=== PATIENT | male | born 1945 | race Caucasian/White ===

== ENCOUNTER 2020-01-20 16:01 | Inpatient (IN) | payer OTHER ==
[~2020-01-20] VITALS: Ht 172.7 cm; Wt 72.9 kg
[~2020-01-20 16:01] MED LIST: ACETADOTE200 MG/1 M INH; ALBU2.5V5 INH; LIDOCAINE SS; OXYC5 PT; POTA20LUD PT; Tazicef1 G1 IV; VISCOUS SS; Xylocaine5 M1 SS
[2020-01-20 16:35] LABS: Hematocrit 40.7 % (37.0-53.0); Hemoglobin 13.6 g/dL (13.5-17.5); Mean Corpuscular HGB 29.6 pg (26.0-34.0); Mean Corpuscular HGB Conc 33.4 g/dL (31.5-36.5); Mean Corpuscular Volume 89 fL (80-100); Mean Platelet Volume 10.9 fL (9.1-12.4); NRBC ABSOLUTE 0.15 K/mm3 (0.00-0.02); NRBC Auto 2.7 /100 WBC (0.0-0.2); RDW Coefficient Variation 18.5 % (11.7-14.2); RDW Standard Deviation 59.3 fL (35.1-46.3); Red Blood Cell Count 4.59 M/mm3 (4.30-5.90); White Blood Cell Count 5.65 K/mm3 (4.00-11.30)
[2020-01-20] MEDS ORDERED: CREON DR 12,001 EACH PO (16:44)
[2020-01-20 16:46] LABS: Alanine Aminotransfer (ALT/SGP 290 U/L (12-78); Albumin, Blood 1.8 g/dL (3.4-5.0); Albumin/Globulin Ratio 0.5 (0.8-1.8); Alk Phos 469 U/L (50-136); Anion Gap 4 mmol/L (6-16); Aspartate Aminotrans (AST/SGOT 251 U/L (12-37); Bilirubin, Total 5.9 mg/dL (0.1-1.0); Blood Urea Nitrogen 41 mg/dL (8-24); Bun/Creatinine Ratio 49.1 (12.0-20.0); CO2, Blood 40 mmol/L (21-32); Calcium, Blood 8.3 mg/dL (8.5-10.1); Chloride, Blood 103 mmol/L (98-108); Creatinine, Blood 0.84 mg/dL (0.60-1.20); Globulin, Blood 3.5 g/dL (2.2-4.0); Glomerular Filtration Rate >60 (60-); Glucose, Blood 164 mg/dL (70-99); Potassium, Blood 2.7 mmol/L (3.5-5.5); Sodium, Blood 147 mmol/L (136-145); Total Protein, Blood 5.3 g/dL (6.4-8.2)
[2020-01-20] MEDS ORDERED: SILODOSIN4 MG PO (16:47)
[2020-01-20] MEDS ORDERED: Prinivil10 MG PO (16:47)
[2020-01-20 16:50] LABS: Platelet Count 28 K/mm3 (150-400)
[2020-01-20 17:03] LABS: International Normalized Ratio 1.04; Prothrombin Time Results 11.1 Sec (9.7-11.5)
[2020-01-20] MEDS ORDERED: Aspir 8181 MG PO (17:08)
[2020-01-20] MEDS ORDERED: ZYRTEC10 M2 PO (17:09)
[2020-01-20] MEDS ORDERED: CALCIUM 250-VI1 EACH PO (17:12)
[2020-01-20] MEDS ORDERED: FAMO20 PO (17:14)
[2020-01-20] MEDS ORDERED: CHLO25B PO (17:14)
[2020-01-20] MEDS ORDERED: ZOCOR20 MG PO (17:15)
[2020-01-20] MEDS ORDERED: FISH OIL 1,2001 EAC1 PO (17:15)
[2020-01-20] MEDS ORDERED: LOSA50 PO (17:15)
[2020-01-20] MEDS ORDERED: NASAL SPRAY88 ML (17:16)
[2020-01-20] MEDS ORDERED: OMEP20ER PO (17:17)
[2020-01-20] MEDS ORDERED: Hair, Skin & N1 EACH PO (17:18)
[2020-01-20] MEDS ORDERED: CIDAFLEX TABLE1 EAC1 PO (17:19)
[2020-01-20 17:51] LABS: EOSINOPHILS PERCENT MAN 0 % (0-6); LYMPHOCYTES % ATYPICAL MANUAL 1 % (0-0); METAMYELOCYTE ABSOLUTE MAN 0.33 K/mm3 (0.00-0.00); SEG NEUTROPHILS PERCENT MAN 70 % (41-73); TOTAL CELLS COUNTED 100
--- NOTE | 2020-01-21 00:40 | NUR ---
2ND IV PLACED BY JESSICA LOFTON VIA U/S FOR NEWLY ORDERED IV INFUSIONS FOLLOWING LOW POTASSIUM AND MAGNESIUM LEVELS.
--- NOTE | 2020-01-21 01:00 | NUR ---
POTASSIUM LEVEL ONLY CAME UP TO 2.8 FROM 2.7 AFTER [facility] THEN 40 [facility] IV KRIDER IN ER. ALMA (TITLE CURATIVE SPECIALIST) ALERTED AND SHE RX'D AN ADDITIONAL X1 40 MEQ PO KCL AND 40 MEQ IV KRIDER. SHE ALSO RX'D X1 30 MMOL IV KPHOSH INFUSION FOR MG 2.0. 2ND IV PLACED AND INFUSIONS COMMENCED. AM LABS ORDERED FOR FOLLOW UP.
--- NOTE | 2020-01-21 03:03 | NUR ---
NEWLY PLACED SHAN IV INFILTRATED DURING KPHOS INFUSION SO WAS DC'D. JESSICA LOFTON REPLACED IV W/22G IV TO R.FA VIA U/S AND KPHOS RESTARTED.
[2020-01-21 05:13] LABS: Hematocrit 39.2 % (37.0-53.0); Hemoglobin 13.1 g/dL (13.5-17.5); Mean Corpuscular HGB 29.6 pg (26.0-34.0); Mean Corpuscular HGB Conc 33.4 g/dL (31.5-36.5); Mean Corpuscular Volume 89 fL (80-100); Mean Platelet Volume 12.6 fL (9.1-12.4); NRBC ABSOLUTE 0.13 K/mm3 (0.00-0.02); NRBC Auto 2.2 /100 WBC (0.0-0.2); RDW Coefficient Variation 18.7 % (11.7-14.2); Red Blood Cell Count 4.42 M/mm3 (4.30-5.90)
[2020-01-21 05:27] LABS: Platelet Count 28 K/mm3 (150-400)
[2020-01-21 05:39] LABS: Alanine Aminotransfer (ALT/SGP 281 U/L (12-78); Albumin, Blood 1.7 g/dL (3.4-5.0); Albumin/Globulin Ratio 0.5 (0.8-1.8); Alk Phos 466 U/L (50-136); Anion Gap 5 mmol/L (6-16); Aspartate Aminotrans (AST/SGOT 261 U/L (12-37); Bilirubin, Total 6.4 mg/dL (0.1-1.0); Blood Urea Nitrogen 37 mg/dL (8-24); Bun/Creatinine Ratio 50.3 (12.0-20.0); CO2, Blood 37 mmol/L (21-32); Calcium, Blood 8.3 mg/dL (8.5-10.1); Chloride, Blood 102 mmol/L (98-108); Creatinine, Blood 0.74 mg/dL (0.60-1.20); Globulin, Blood 3.4 g/dL (2.2-4.0); Glomerular Filtration Rate >60 (60-); Glucose, Blood 166 mg/dL (70-99); Potassium, Blood 3.3 mmol/L (3.5-5.5); Sodium, Blood 144 mmol/L (136-145); Total Protein, Blood 5.1 g/dL (6.4-8.2)
[2020-01-21 05:41] LABS: BAND PERCENT MAN 16 % (0-8); BASOPHILS PERCENT MAN 0 % (0-2); EOSINOPHILS PERCENT MAN 0 % (0-6); LYMPHOCYTES ABSOLUTE MAN 0.82 K/mm3 (0.84-5.20); LYMPHOCYTES PERCENT MAN 14 % (21-46); METAMYELOCYTE ABSOLUTE MAN 0.11 K/mm3 (0.00-0.00); METAMYELOCYTE PERCENT MAN 2 % (0-0); MONOCYTES ABSOLUTE MAN 0.17 K/mm3 (0.16-1.47); MONOCYTES PERCENT MAN 3 % (4-13); MYELOCYTE ABSOLUTE MAN 0.23 K/mm3 (0.00-0.00); MYELOCYTE PERCENT MAN 4 % (0-0); NEUTROPHILS ABSOLUTE MAN 4.54 K/mm3 (1.96-9.15); SEG NEUTROPHILS PERCENT MAN 61 % (41-73); TOTAL CELLS COUNTED 100
--- NOTE | 2020-01-21 05:50 | NUR ---
SUMMARY: REPORT RECIEVED FROM ANNALISE (SIDE SHOW ENTERTAINER) AT 2019 AND PT T/F VIA GURNEY TO ROOM 350 W/ AT BEDSIDE. PT IS ORIENTED, A FINE HISTORIAN AND CAN SPECIFY NEEDS BUT ASSISTED W/ADMISSION D/T PT TALKING W/VOICEBOX FOLLOWING LARYNGECTOMY R/T THROAT CANCER. STOMA NOTED TO MEDIAL NECK AND PT COMMENCED HUMIDIFIED COOL AIR, NO O2 NEEDED. HE OCCASIONALLY HAD DRY FOURTH MATE COUGH BUT RESPS E/U AND SPO2 WNL. PT TOLERATED PILLS W/WATER. HIS ABDO IS DISTENDED/FIRM AND TENDER BUT PT DENIED NAUSEA OR NEEDING PAIN MEDS. ABDO U/S SHOWED NUMEROUS NEW MASSES, INTENDS TO DISCUSS W/ONCOLOGISTS AT [place] AND PT/ HOPE FOR TX SOON POSSIBLE. PT CONT'S TO HAVE POOR APPETITE BUT SNACKS/FLUIDS ENCOURAGED. RECHECK OF POTASSIUM WAS 2.8 W/ADDITIONAL 40MEQ PO AND KRIDERS RECIEVED. PHOS WAS 2.0 W/KPHOS RX'D AND REMAINS INFUSING. AM LABS PENDING AND PLATELETS ARE STILL CRITICAL, 28. SCD'S APPLIED, BLE 1-2 EDEMA NOTED. HE'S WEAK AND DECONDITIONED R/T ILLNESS BUT STANDS AT EOB TO USE URINAL FOR SMALL AMT'S OF VOID. PT NSR ON TELEMETRY AT 70'S BPM. VSS/AFEBRILE, NO ACUTE CHANGES. WCTM AND REPORT TO DAY RN.
--- NOTE | 2020-01-21 09:36 | NUR ---
CALLED DR HUDSON- PT NOTED TO HAVE DARK YELLOW PATCHES IN HIS MOUTH AND ON HIS TOUNG. SPOKE TO THE SPOUSE AND SHE STATED THEY "DIDN'T EVEN KNOW HE HAD THRUSH U[facility]IL [facility]." RECIEVED ORDER FOR NYSTATIN SWISH AND SWALLOW QID.
[2020-01-21 13:44] LABS: BAND PERCENT MAN 15 % (0-8); LYMPHOCYTES ABSOLUTE MAN 0.62 K/mm3 (0.84-5.20); LYMPHOCYTES PERCENT MAN 10 % (21-46); MONOCYTES PERCENT MAN 3 % (4-13)
[2020-01-21 13:45] LABS: BASOPHILS PERCENT MAN 0 % (0-2); MONOCYTES ABSOLUTE MAN 0.16 K/mm3 (0.16-1.47)
[2020-01-21 13:46] LABS: MYELOCYTE ABSOLUTE MAN 0.05 K/mm3 (0.00-0.00); MYELOCYTE PERCENT MAN 1 % (0-0)
--- NOTE | 2020-01-21 18:07 | NUR ---
SHIFT SUMMARY- PT ALERT AND ORIENTED, CAN INDEPENDENTLY USE THE URINAL. PT SPOUSE HAS BEEN AT THE BEDSIDE FOR MOST OF THE SHIFT. PT CAN SPEAK IN A WISPER OR LOUDLY WITH THE MECHANICAL VOICE BOX HE HAS. PT STATED HE WANTS TO REMAIN A DNR, BRACELET WAS PLACED AND ORDER CONFIRMED WITH RN VIVIAN. PT SPOUSE HAS BEEN SPEAKING WITH THE STAFF AT [facility]. AT ONE POINT THE PLAN WAS TO TRANSFER THE PT THIS EVENING. THE LAST CALL SHE RECIEVED WAS AFTER THE DR'S HAD SPOKE AND SHE STATED SHE WAS INFORMED THAT THEY WILL REVISIT THE IDEA OF TRANSFER TOMORROW ONCE THE RESULTS OF THE CT SCAN ARE IN. THIS IS ALL REPORTED BY THE PT AFTER SPEAKING TO [facility] RN BY TELEPHONE THIS EVENING. PT REMAINS OPTOMISTIC. PT HAS DENIED THE NEED FOR PAIN MEDICATION AT THIS TIME. PT IS MORE LETHARGIC THIS EVENING COMPARED TO THIS MORNING. PT CURRENTLY SITTING UP IN BED CALL LIGHT IN REACH, EATING HIS DINNER. SWISH AND SWALLOW NEXT TO THE TRAY FOR ONCE THE PT COMPLETES HIS MEAL. WILL PASS ALL ON IN REPORT TO NIGHT RN.
--- NOTE | 2020-01-22 04:01 | NUR ---
MORNING NEWS PRODUCER SUMMARY PT WAS CONFUSED EVEN URINATING ON THE FLOOR TWICE SO A CONDOM CATHETER WAS PLACED BUT PT PULLED IT OFF. PT HAD INCREASED SECRETIONS W BLOOD IN STOMA SO R/T WAS CONTACTED SEVERAL TIMES TO PERFORM SUCTIONING. PT APPEARS MORE ALERT THIS AM AND IS TOLERATING SUCTIONING WELL. PT HAS SLEPT OFF AND ON ALL NIGHT W NO C/O PAIN OR NAUSEA. WCTM.
[2020-01-22 05:15] LABS: Hematocrit 39.5 % (37.0-53.0); Hemoglobin 13.3 g/dL (13.5-17.5); Red Blood Cell Count 4.46 M/mm3 (4.30-5.90); White Blood Cell Count 6.35 K/mm3 (4.00-11.30)
[2020-01-22 05:16] LABS: Alanine Aminotransfer (ALT/SGP 312 U/L (12-78); Albumin, Blood 1.8 g/dL (3.4-5.0); Albumin/Globulin Ratio 0.5 (0.8-1.8); Alk Phos 562 U/L (50-136); Anion Gap 7 mmol/L (6-16); Aspartate Aminotrans (AST/SGOT 296 U/L (12-37); Blood Urea Nitrogen 38 mg/dL (8-24); Bun/Creatinine Ratio 46.7 (12.0-20.0); CO2, Blood 34 mmol/L (21-32); Calcium, Blood 8.7 mg/dL (8.5-10.1); Chloride, Blood 103 mmol/L (98-108); Creatinine, Blood 0.81 mg/dL (0.60-1.20); Globulin, Blood 3.3 g/dL (2.2-4.0); Glomerular Filtration Rate >60 (60-); Glucose, Blood 142 mg/dL (70-99); Mean Corpuscular HGB 29.8 pg (26.0-34.0); Mean Corpuscular HGB Conc 33.7 g/dL (31.5-36.5); Mean Corpuscular Volume 89 fL (80-100); Phosphorus, Blood 2.6 mg/dL (2.5-4.9); Sodium, Blood 144 mmol/L (136-145); Total Protein, Blood 5.1 g/dL (6.4-8.2)
[2020-01-22 05:17] LABS: Platelet Count 30 K/mm3 (150-400); RDW Standard Deviation 59.7 fL (35.1-46.3)
[2020-01-22 05:19] LABS: BAND PERCENT MAN 14 % (0-8); BASOPHILS PERCENT MAN 0 % (0-2); EOSINOPHILS PERCENT MAN 0 % (0-6); LYMPHOCYTES ABSOLUTE MAN 0.95 K/mm3 (0.84-5.20); LYMPHOCYTES PERCENT MAN 15 % (21-46); MONOCYTES ABSOLUTE MAN 0.25 K/mm3 (0.16-1.47); MONOCYTES PERCENT MAN 4 % (4-13); MYELOCYTE ABSOLUTE MAN 0.06 K/mm3 (0.00-0.00); MYELOCYTE PERCENT MAN 1 % (0-0); NEUTROPHILS ABSOLUTE MAN 5.08 K/mm3 (1.96-9.15); SEG NEUTROPHILS PERCENT MAN 66 % (41-73); TOTAL CELLS COUNTED 100
--- NOTE | 2020-01-22 05:42 | NUR ---
INCREASED BLEEDING PT HAD INCREASED AM BLEEDING FROM LARYNGEAL STOMA R/T WAS PROVIDING SUCTIONING PRN BUT REPORTED THEIR CONCERN SO PROVIDER WAS CONTACTED TO MAKE AWARE OF LOW PLATELET COUNT AND ACTIVE BLEEDING SO ONE UNIT OF PLATELETS WAS ORDERED AND INR LABS TO BE DRAWN. WCPAMELA.
[2020-01-22 05:56] LABS: International Normalized Ratio 1.09; Prothrombin Time Results 11.6 Sec (9.7-11.5)
--- NOTE | 2020-01-22 07:44 | NUR ---
CALLED RT ANDIE- PT LUNG SOUNDS MORE MOIST THAN YESTERDAY. RT ANDIE CAME AN SUCTIONED THE UPPER STOMA AND GOT A LARGE AMOUNT OF MITESH RED BLOOD. PT TOLLERATED WELL COUGH DOES NOT SEEM MOIST. RT SET UP SUCTION FOR THE PT TO USE IF HE NEEDS AND INSTRUCTED HIM NOT TO INSERT IT INTO HIS STOMA. PT ACKNOWLEDGED UNDERSTANING OF THIS.
--- NOTE | 2020-01-22 08:04 | NUR ---
CALLED DR HUDSON- SPOKE ABOUT THE PT WET LUNG SOUNDS AND THE SLIGHTLY LOWER BP THIS MORNING. OK TO HOLD COZAR AND RECIEVED ORDER FOR 2 VIEW CHEST XRAY.
--- NOTE | 2020-01-22 12:19 | NUR ---
PT GAVE SOIL AND PLANT SCIENTIST PERMISSION FOR CARE ON 02/01/20 AT 700.
--- NOTE | 2020-01-22 12:53 | NUR ---
Spiritual care visit conducted. Patient is sitting up in bed and alert. Patient's spouse, Hilda, is present. They tell me about the patient's cancer, the levels that need to regulate in order to consider a transfer to the [facility], and how they are handling things emotionally. They explain about their belief in a higher power, patient's "I will fight this to the end" spirit and their love and commitment to each other. Hilda seems much more open to taking her home on hospice, although the thought of it brings her to tears. I normalize their feelings and thoughts, reinforce helpful attitudes and practices and provide emotional supoort and a calming presence. I will continue to remain available to help them work through the best medical decisions for them as they comntemplate the transfer for on-going treatment.
--- NOTE | 2020-01-22 15:49 | NUR ---
PT SPOUSE SEEMS MORE ACCEPTING OF SPEAKING WITH THE PALLIATIVE CARE TEAM SHE STATED IF THE PT IS NOT GOING TO GET ANY BETTER "HOSPICE IS THE WAY TO GO." AT THIS TIME THE SPOUSE WISHES TO SUPPORT THE PT IN HIS DECISIONS WICH CURRENTLY ARE TO "FIGHT IT TILL THE END." CALLED PALLIATIVE CARE RN HARLEY WHO WILL COME TO SEE THEM SOON. PT SEEMS TO BE BECOMING MORE LETHARGIC THIS EVENING, DENIES THE NEED FOR PAIN MEDICINE, BUT IS FAR MORE SLEEPY THIS EVENING.
--- NOTE | 2020-01-22 16:03 | NUR ---
SPOKE TO JUAN PABLO WHITLEY- RALPH FIRST DOSE OF FLAGYL WAS GIVEN AT 1100 NEXT DOSE DUE AT 1600. OK TO GIVE THE DOSE AT 1800 THEN ON TO THE SCHEDULED TIMES FROM THEN ON.
--- NOTE | 2020-01-22 16:56 | NUR ---
Spoke with Bedside RN Marquita and discussed case prior to Pt visit. Pt resting in bed with his eyes closed for much of the visit. Engaged in therapeutic listening as spouse Hilda expresses concern regarding Pt's condition. Hilda reports Pt would like to fight and receive cancer treatment if his body will allow. Hilda reports understanding of the potential of Pt needing to consider hospice. Hilda states if Pt doesn't stabilize then she will take him home on hospice. Hilda reports understanding of hospice philosophy due to having hospice experience with other family members. Hilda tearful at times and this RN offered emotional support. Hilda also expresses concerns regarding Pt's NPO status and states due to Pt's procedure it is not possible for Pt to aspirate. She would like careteam to consider placing Pt back onto a diet. Dr Stearns and RT Jennifer in to examine Pt. This RN ended visit with Hilda agreeable to continued visits from Palliative Care. Relayed request regarding diet to Dr Howell. Palliative Care will remain available.
[2020-01-22 18:14] LABS: Base Excess Venous 11.4 mmol/L; Bicarbonate Venous 34.4 mmol/L (24.0-30.0); PCO2 Venous 37.3 mmHg (38-42)
[2020-01-22 18:18] LABS: pH Blood Venous 7.56 (7.34-7.37)
--- NOTE | 2020-01-22 18:36 | NUR ---
SPOKE TO PULMONOLOGY ABOUT CRITICAL HIGH PH ON VBG. SHE IS AWARE NO NEW ORDERS AT THIS TIME. 18G IV PLACED IN THE LEFT AC WITH THE USE OF ULTRASOUND. CALLED CT TO TELL THEM THE PT IS READY FOR THE STAT CT CHEST. REQUESTED THAT NIGHT RN CALL HER WITH THE RESULT OF THE PE STUDY.
[2020-01-22 18:49] LABS: Adenovirus Not Detected (NOT DETECT); Bordetella pertussis Not Detected (NOT DETECT); Chlamydophila pneumoniae Not Detected (NOT DETECT); Coronavirus 229E Not Detected (NOT DETECT); Coronavirus HKU1 Not Detected (NOT DETECT); Coronavirus NL63 Not Detected (NOT DETECT); Coronavirus OC43 Not Detected (NOT DETECT); Human Metapneumovirus Not Detected (NOT DETECT); Human Rhinovirus/Enterovirus Not Detected (NOT DETECT); Influenza A/2009-H1 Not Detected (NOT DETECT); Influenza A/H1 Not Detected (NOT DETECT); Influenza A/H3 Not Detected (NOT DETECT); Influenza B Not Detected (NOT DETECT); Mycoplasma pneumoniae Not Detected (NOT DETECT); Parainfluenza Virus 1 Not Detected (NOT DETECT); Parainfluenza Virus 2 Not Detected (NOT DETECT); Parainfluenza Virus 3 Not Detected (NOT DETECT); Parainfluenza Virus 4 Not Detected (NOT DETECT); Respiratory Syncytial Virus Not Detected (NOT DETECT); SARS-Cov-2 (COVID-19), BioFire Not Detected (NOT DETECT)
--- NOTE | 2020-01-22 19:27 | NUR ---
SHIFT SUMMARY- PT HAS CONTINUED TO BECOME MORE LETHARGIC T/O THE DAY. BLOODY SPUTUM SUCTIONED OUT OF THE TRACH STOMA BY RT AND SENT TO LAB FOR BACTERIAL CULTURE. PT HAD CHEST XRAY THIS MORNING AND WAS MADE STRICT NPO BY DR. JESSICA REINOSO DC'D. PT WAS SEEN BY PULMONOLOGY THIS EVENING, STAT CHEST CT TO R/O PE JUST COMPLETED, DELAYED BY THE LACK OF APPROPRIATE IV ACCESS. MULTIPLE ATTEMPTS TO ACHIEVE 18G IV ACCESS IN THE AC OR HIGHER. ONE PLACED BY WET PAN OPERATOR CARMELO. PT ALERT AND ORIENTED BUT VERY SLEEPY THIS EVENING. SPOUSE IS AT THE BEDSIDE AT THIS TIME. PLAN IS FOR SPOUSE TO BRING A FAMILY MEMBER AND A FRIEND WITH THE PT WRITTEN WILL. THEY HAVE REQUESTED [facility] FOR THE WILL TOMORROW.
--- NOTE | 2020-01-22 20:00 | NUR ---
[address]Y WITH [address] SCAN RESULTS. PROVIDER OK'D TO INFORM PT OF CANCER SPREAD TO PT LUNGS. NO OTHER ORDERS OBTAINED.
--- NOTE | 2020-01-23 04:22 | NUR ---
HEEL COVER SPLITTER SUMMARY PT HAD A MUCH BETTER NIGHT COMPARED TO THE PREVIOUS NIGHT HE REQUIRED NO SUCTIONING AND SHOWED NO SIGNS OF ANY AIRWAY OBSTRUCTION. PT WAS UP SEVERAL TIMES TO VOID BUT DID NOT USE HIS CALL LIGHT, BED ALARM IS ON. CLINIMIX IS RUNNING AT 100/ML/HR. PT WENT FOR CT SCAN AT THE START OF THE SHIFT AND THE PROVIDER WAS CONTACTED WITH THE RESULTS. PT HAS SLEPT FOR MOST OF THE SHIFT AND IS RESTING COMFORTABLY W CALL LIGHT WITHIN REACH. [facility]
[2020-01-23 05:16] LABS: Hematocrit 37.4 % (37.0-53.0); Hemoglobin 12.5 g/dL (13.5-17.5); Mean Corpuscular HGB 29.6 pg (26.0-34.0); Mean Corpuscular HGB Conc 33.4 g/dL (31.5-36.5); Mean Corpuscular Volume 88 fL (80-100); Mean Platelet Volume 10.7 fL (9.1-12.4); NRBC ABSOLUTE 0.15 K/mm3 (0.00-0.02); NRBC Auto 2.1 /100 WBC (0.0-0.2); Platelet Count 63 K/mm3 (150-400); RDW Standard Deviation 60.1 fL (35.1-46.3); Red Blood Cell Count 4.23 M/mm3 (4.30-5.90)
[2020-01-23 05:30] LABS: Albumin, Blood 1.7 g/dL (3.4-5.0); Anion Gap 6 mmol/L (6-16); Blood Urea Nitrogen 37 mg/dL (8-24); Bun/Creatinine Ratio 55.1 (12.0-20.0); CO2, Blood 33 mmol/L (21-32); Calcium, Blood 8.4 mg/dL (8.5-10.1); Chloride, Blood 105 mmol/L (98-108); Creatinine, Blood 0.67 mg/dL (0.60-1.20); Glomerular Filtration Rate >60 (60-); Glucose, Blood 191 mg/dL (70-99); Phosphorus, Blood 2.7 mg/dL (2.5-4.9); Potassium, Blood 3.3 mmol/L (3.5-5.5); Sodium, Blood 144 mmol/L (136-145)
[2020-01-23 05:40] LABS: BAND PERCENT MAN 20 % (0-8); BASOPHILS PERCENT MAN 0 % (0-2); EOSINOPHILS PERCENT MAN 0 % (0-6); LYMPHOCYTES ABSOLUTE MAN 0.64 K/mm3 (0.84-5.20); LYMPHOCYTES PERCENT MAN 9 % (21-46); MONOCYTES ABSOLUTE MAN 0.07 K/mm3 (0.16-1.47); MONOCYTES PERCENT MAN 1 % (4-13); MYELOCYTE ABSOLUTE MAN 0.21 K/mm3 (0.00-0.00); MYELOCYTE PERCENT MAN 3 % (0-0); NEUTROPHILS ABSOLUTE MAN 6.26 K/mm3 (1.96-9.15); SEG NEUTROPHILS PERCENT MAN 67 % (41-73); TOTAL CELLS COUNTED 100
--- NOTE | 2020-01-23 09:32 | NUR ---
Spoke with ST Bailey prior to Pt visit and discussed case. Will let Lynn know Pt's goals of care after visit. Pt resting in bed upon arrival. Family at bedside. Engaged in therapeutic conversation regarding CT results and goals of care. Listened as Pt expresses his thoughts and states "He does not want to be in hospitals anymore" and "If I'm going to , I want to do it at home". Discussed hospice further as an option. Educated on hospice philosophy. Pt and family report plan to discuss options further before making a decision. Ansered questions and continued therapeutic listening. Pt and family expresses appreciation of visit. Spoke with ST Bailey and updated that Pt has not made a decision yet. Palliative Care will remain available.
--- NOTE | 2020-01-23 17:18 | NUR ---
PT A/O X4; PLEASANT AND COOPERATIVE WITH CARE. USES THE URINAL AT THE SIDE OF THE BED. NO SIGNS OF AIRWAY DISTRESS THIS SHIFT. PT WAS TO [place]BRA TRANSFER TO THE IN IN FIRTH THIS SHIFT, BUT HE AND HIS DECIDED TO BE TREATED HERE FOR NOW AND DID NOT GO. TELE RUNNING SINUS. MEDICATE PER EMR FOR PAIN. VSS; WCTM.
--- NOTE | 2020-01-23 22:50 | NUR ---
CALL PLACED TO HOSPITALIST: PER LAB, 1 OF 2 BLOOD CULTURE VIALS POSITIVE SO FAR FOR GRAM + COCCI IN CLUSTERS. PER PHARMACIST, PT CURRENT DOSE OF ROCEPHIN DOES COVER BACTERIA STRAIN. RECOMMENDED MD BE NOTIFIED. SPOKE W/ ALMA BUSTOS. PT IS CLINICALLY SHOWING IMPROVEMENT SO ALMA STATES IT IS OK TO CONT CURRENT ABT REGIMEN AND MAKE SURE THE DOCTORS DURING THE DAY TIME ARE AWARE.
--- NOTE | 2020-01-24 05:39 | NUR ---
SHIFT SUMMARY: VSS. AFEB. AAO TO SELF, SURROUNDINGS, SITUATION, YEAR, BUT NOT DAY OR MONTH. ABLE TO COMMUNICATE NEEDS. ENCOURAGED PT TO CALL FOR ASSIST W/STANDING AT BEDSIDE TO USE URINAL. ABLE TO STAND, BUT OCCASIONALLY APPEAR TO BEGIN TO LOSE BALANCE, NEEDS 1 ASSIST FOR CONTACT GUARD SUPPORT. MINOR EXERTIONAL DYSPNEA. 02 AT 94-96%. 26% FIO2 WARMED HUMIDIFIED AIR VIA TRACH. PT COUGHED UP 1 QUARTER SIZED BLOOD CLOT TONIGHT. COARSE LUNG SOUNDS IN R LOBES. DRY, CONGESTED SOUNDING COUGH. MED X 1 W/FENTANYL FOR ABD PAIN EFFECTIVELY. SLEPT INTERMITTENTLY. WILL CONT TO MONITOR.
[2020-01-24 06:21] LABS: Hematocrit 40.3 % (37.0-53.0); Hemoglobin 13.4 g/dL (13.5-17.5); Mean Corpuscular HGB Conc 33.3 g/dL (31.5-36.5); Mean Corpuscular Volume 87 fL (80-100); NRBC Auto 4.9 /100 WBC (0.0-0.2); RDW Coefficient Variation 19.1 % (11.7-14.2); RDW Standard Deviation 59.4 fL (35.1-46.3); Red Blood Cell Count 4.62 M/mm3 (4.30-5.90); White Blood Cell Count 8.18 K/mm3 (4.00-11.30)
[2020-01-24 06:36] LABS: Albumin, Blood 1.7 g/dL (3.4-5.0); Anion Gap 11 mmol/L (6-16); Blood Urea Nitrogen 44 mg/dL (8-24); Bun/Creatinine Ratio 54.9 (12.0-20.0); CO2, Blood 27 mmol/L (21-32); Calcium, Blood 8.7 mg/dL (8.5-10.1); Chloride, Blood 104 mmol/L (98-108); Glomerular Filtration Rate >60 (60-); Glucose, Blood 167 mg/dL (70-99); Phosphorus, Blood 2.9 mg/dL (2.5-4.9); Potassium, Blood 4.1 mmol/L (3.5-5.5); Sodium, Blood 142 mmol/L (136-145)
[2020-01-24 06:55] LABS: Platelet Count 29 K/mm3 (150-400)
[2020-01-24 07:03] LABS: BAND PERCENT MAN 18 % (0-8); BASOPHILS PERCENT MAN 0 % (0-2); EOSINOPHILS PERCENT MAN 0 % (0-6); LYMPHOCYTES ABSOLUTE MAN 0.98 K/mm3 (0.84-5.20); LYMPHOCYTES PERCENT MAN 12 % (21-46); METAMYELOCYTE ABSOLUTE MAN 0.08 K/mm3 (0.00-0.00); METAMYELOCYTE PERCENT MAN 1 % (0-0); MONOCYTES ABSOLUTE MAN 0.08 K/mm3 (0.16-1.47); MONOCYTES PERCENT MAN 1 % (4-13); MYELOCYTE ABSOLUTE MAN 0.16 K/mm3 (0.00-0.00); MYELOCYTE PERCENT MAN 2 % (0-0); NEUTROPHILS ABSOLUTE MAN 6.87 K/mm3 (1.96-9.15); SEG NEUTROPHILS PERCENT MAN 66 % (41-73); TOTAL CELLS COUNTED 100
[2020-01-24] MEDS ORDERED: Ativan1 MG PO (14:56)
[2020-01-24] MEDS ORDERED: OXYCODONE SL (14:58)
--- NOTE | 2020-01-24 15:46 | NUR ---
Met with pt and thes AM. Pt is adamant he want to go home and feels she has the support to accoplish the goal. also states she feels is progressing quicker.Advised we try to facilitae home today. Suggested they accept comfort care so he can have visitors in case he declines more and have comprehensive palliative medications for his ventilatory stress. Reached out to hospice teams [facility] able to intake patients. poslt completed and sent with patient. Confirmed able to manage his oxygen needs and correct trach mask at home. orderes sent to hospice team. Advised pt and his is symtoms are to exptrodinary they will need to break hospice and return to hospital. Reviewd with what we would do to help him. pt hesitant to take a felder catheter but voiding frequently. Explained how it would enhance comfort and can be discontinued when voiding less. Pt decided to have felder. Suggested premedicat pt for transfer to reduce air hunger and stress. Will follow up with .
--- NOTE | 2020-01-24 18:34 | NUR ---
Discharge Summary A/Ox3, pleasant and cooperative with care. Patient transitioned from full care to comfort care this shift. Medicated for pain per EMAR with good relief. Solis catheter placed per patient's request for comfort as he has been increasingly weak. Prior to cath placement, patient was a 1-2 moderate assist to stand and use urinal. Patient has been discharge to home with hospice. Transport picked up @ 1835 via [facility]. 2 hard scripts handed to to fill as pharmacy. Reviewed discharge paperwork and medications with and patient, no questions at this time. Copy provided. Personal belongings sent home. IV's x 3 removed, all WNL. Solis was patent and draining at discharge with minimal bleeding from urethra. 10L O2 provided by EMS.
== END 2020-01-24 18:35 | disposition hospice, home (50) | DRG 640 ==
LOC: ER 16:01 → MEDS 16:02
PROVIDERS: Family Medicine; Internal Medicine; Internal Medicine Pulmonary Disease; Nurse Practitioner Acute Care; Physician Assistant; ADMIT Internal Medicine
DX: E87.6 Hypokalemia (principal); J96.01 Acute respiratory failure with hypoxia; R65.20 Severe sepsis without septic shock; J69.0 Pneumonitis due to inhalation of food and vomit; A41.9 Sepsis, unspecified organism; C78.7 Secondary malignant neoplasm of liver and intrahepatic bile duct; B37.0 Candidal stomatitis; E72.20 Disorder of urea cycle metabolism, unspecified; R18.8 Other ascites; J95.01 Hemorrhage from tracheostomy stoma; C78.1 Secondary malignant neoplasm of mediastinum; D69.6 Thrombocytopenia, unspecified; E78.5 Hyperlipidemia, unspecified; I10 Essential (primary) hypertension; Z87.891 Personal history of nicotine dependence; R16.0 Hepatomegaly, not elsewhere classified; Z79.82 Long term (current) use of aspirin; Z90.02 Acquired absence of larynx; Z66 Do not resuscitate; Z51.5 Encounter for palliative care; C14.0 Malignant neoplasm of pharynx, unspecified
CPT/HCPCS: 0202U; 31720; 36415; 36430; 71046; 71260; 74178; 76705; 80053; 80069; 82140; 82803; 83605; 83690; 83735; 84100; 84132; 85025; 85610; 86900; 86901; 87040; 87070; 87077; 87186; 87205; 92610; 93005; 93010; 96365; 96366; 96367; 99285-25; A9270; A9270-GY; C9113; G0378; J0696; J3010; J3480; J7050; J7060; P9035; Q9967